=== PATIENT | male | born 1940 | race Caucasian/White ===

== ENCOUNTER 2016-10-02 13:45 | Inpatient (IN) | payer MEDICARE, OTHER ==
--- NOTE | ~2016-10-02 | DS ---
Discharge Summary [facility] [address] [facility] [place]. [address] NAME: DEMAR GRIMM : 40 STATUS : DIS IN PAT#: [id number] AGE: 76 ADM/REG DATE : 10/02/16 MR#: [id number] REPORT SERV DATE: 10/13/16 DICTATED BY: MATT HOLLINGSWORTH DATE: 10/12/16 REPORT STATUS : Draft TRANSCRIBED BY: MODL DATE: 10/12/16 ADMISSION DATE: 10/02/2016 DISCHARGE DATE: 10/12/2016 DISCHARGE DIAGNOSES: 1. End-stage renal disease, due to focal segmental glomerulosclerosis. The patient is now on hemodialysis. 2. Status post arteriovenous fistula placement. 3. Acute on chronic systolic congestive heart failure, now euvolemic. 4. Iron-deficiency anemia, with Coag-negative stools. The patient will follow up as an outpatient as he has never had a colonoscopy. 5. Chronic obstructive pulmonary disease with ongoing tobacco abuse. CONSULTANTS: 1. Cardiology. 2. Nephrology. 3. Vascular Surgery. PROCEDURES: AV fistula placement on 10/09/2016, by Dr. Fu. HOSPITAL COURSE: This is a 76-year-old gentleman who was admitted to the hospital with acute kidney injury as well as acute volume overload. For details, please refer to excellent H and P dictated by Dr. Stephany Prajapati. I assumed care of this patient on 10/06/2016, and by then, the patient was already on hemodialysis per Nephrology. The patient actually had a very stable hospital stay, and he had a kidney biopsy and AV fistula placement. With dialysis, the patient became euvolemic, and the patient is now being discharged home to continue outpatient dialysis. Of note, the patient was found to have iron-deficiency anemia in the setting of smoking and having never had a colonoscopy. The patient was strongly encouraged to follow up with conveyor monitor to have a followup colonoscopy done. Notably, the patient's stools were negative for occult blood. DISPOSITION: Home. DISCHARGE MEDICATIONS: No changes. FOLLOWUP: 1. Please follow up with PCP in the next one to two weeks. 2. Please follow up with Nephrology as instructed. 3. The patient will go to [place] for hemodialysis upon discharge. A total of 40 minutes spent in coordinating this patient's discharge today. FATEMEH/MADYSON Discharge Summary [place] [id number] [address] NAME: DEMAR GRIMM : 40 STATUS : DIS IN PAT#: [id number] AGE: 76 ADM/REG DATE : 10/02/16 MR#: [id number] REPORT SERV DATE: 10/13/16 DICTATED BY: MATT HOLLINGSWORTH DATE: 10/12/16 REPORT STATUS : Draft TRANSCRIBED BY: MODL DATE: 10/12/16 Matt Hollingsworth MD / [id number] CC: Matt Hollingsworth MD
--- NOTE | ~2016-10-02 | OP ---
Record Of Operation [facility] [address] [place]. [address] NAME: DEMAR GRIMM : 40 STATUS : ADM IN PAT#: [id number] AGE: 76 ADM/REG DATE : 10/02/16 MR#: [id number] REPORT SERV DATE: 10/09/16 DICTATED BY: TIM FU DATE: 10/08/16 REPORT STATUS : Draft TRANSCRIBED BY: MODL DATE: 10/08/16 DATE OF PROCEDURE: 10/08/2016 PREOPERATIVE DIAGNOSIS: End-stage renal disease. POSTOPERATIVE DIAGNOSIS: End-stage renal disease. PROCEDURE: Right radiocephalic arteriovenous fistula. SURGEON: Tim Fu M.D. POWER DISTRIBUTOR: Maryam Dennis MD. ANESTHESIA: Block. INDICATIONS: The patient is a 76-year-old gentleman with a history of chronic kidney disease that has now progressed to end-stage renal disease. I placed a PermCath the other day and he has received dialysis to treat his volume overload. He now needs longer term access that he was consented for intervention. DESCRIPTION OF PROCEDURE: After informed consent was obtained, the patient was taken to the operating room and placed in the supine position on the operating table. A block had previously been administered. The patient's right upper extremity was prepped and draped in the usual sterile fashion. I began with an ultrasound examination of the right upper extremity and found that the right radial artery was about 3 mm in diameter. The right cephalic vein was about 3 mm in diameter in the forearm. There was a smaller segment at a branch point in the [id number] forearm. It enlarged shortly thereafter. Thus, I decided to perform a right radiocephalic fistula. Once again, the right upper extremity had previously been prepped and draped in the usual sterile fashion. A block had been previously administered. A longitudinal skin incision was made along the right wrist. The cautery was used to deepen the incision. I dissected out the radial artery as well as the cephalic vein. I ligated and divided the cephalic vein distally after marking it for orientation. I systemically heparinized and controlled the radial artery. I created a longitudinal arteriotomy. I spatulated the end of the cephalic vein and sewed the end of the cephalic vein onto the side of the radial artery. I had to trim off the end of the vein, as the spatulated end of the vein was fairly long. I flushed off air and debris before tying down the sutures. I then released flow through the fistula. There was a good thrill with continuous forward flow by continuous wave Doppler examination. I washed out the wound, achieved hemostasis, and closed the wound in layers. The patient tolerated the procedure well without any intraprocedural complications noted. JACKELIN/MADYSON Tim Gomez Record Of Operation [address] [place]. [address] NAME: DEMAR GRIMM : 40 STATUS : ADM IN [facility]#: [id number] AGE: 76 ADM/REG DATE : 10/02/16 MR#: [id number] REPORT SERV DATE: 10/09/16 DICTATED BY: TIM FU DATE: 10/08/16 REPORT STATUS : Draft TRANSCRIBED BY: MADYSON DATE: 10/08/16 Catracho Fu / [id number] CC: MD Ceferino Telles M.D.
--- NOTE | ~2016-10-02 | CN ---
Consultation Report [facility] [address] [place]. [address] NAME: DEMAR MEEHAN : 40 STATUS : ADM IN [facility]#: [id number] AGE: 76 ADM/REG DATE : 10/02/16 MR#: [id number] REPORT SERV DATE: 10/03/16 DICTATED BY: DATE: REPORT STATUS : Draft TRANSCRIBED BY: MODL DATE: 10/03/16 CONSULT DATE OF CONSULTATION: REASON FOR CONSULTATION: Acute kidney injury. HISTORY OF PRESENT ILLNESS: Mr. Meehan is a 76-year-old white male with a history of CKD stage 4, followed in [place] by Dr. Alonso. He feels like his baseline creatinine is anywhere from 1.8 to 2.6, and he presented to the hospital after being prompted by his primary care physician within the office on , had labs drawn in and then Wednesday, they called stating his chest x-ray had fluid in it and his lab work, his kidney function was worse, therefore that prompted the ER visit. In the ER, his creatinine was 4.45. His physical exam findings were consistent with congestive heart failure. Given that, he is admitted for further evaluation and treatment. He denies any dysuria, hematuria. He states all the swelling started approximately a month ago. He had some respiratory symptoms, been started on prednisone and went through 2 courses, one was by injection and one was by pills and with that, his edema started and continued to worsen. He states he usually does not have edema to his ankles but now has significant at 2 to 3+. He had increasingly more short of breath as well. No chest pain, tightness, or pressure. PAST MEDICAL HISTORY: Includes CKD, coronary artery disease status post bypass, PTCA stent, SC, COPD, hypertension, tobacco abuse, ongoing CVA, BPH, hyperlipidemia, anxiety, psoriasis, inguinal hernia repair, cataract, and vasectomy. SOCIAL HISTORY: He lives with daughter. Continues to smoke. No alcohol or illicit drug use. FAMILY MEDICAL HISTORY: Includes significant history of diabetes, end-stage renal disease, and coronary artery disease. ALLERGIES: NONE. MEDICATIONS: At the time of consultation, albuterol, amlodipine, aspirin, atorvastatin, Bumex, Plavix, cholecalciferol, finasteride, folic acid, heparin, insulin, multivitamin, metoprolol, nicotine, omega-3 fatty acids, and thiamine. REVIEW OF SYSTEMS: 12-point review of systems obtained and negative with the exception of that in HPI. PHYSICAL EXAMINATION: VITAL SIGNS: Temperature 97.6, blood pressure 107/56, pulse of 69, respiratory rate 20, and O2 saturation is 95%. GENERAL: This is a pleasant, cooperative, white male. He is sitting up on the side of the bed, in no acute distress. Answers questions appropriately. Consultation Report [address] [address] NAME: DEMAR MEEHAN : 40 STATUS : ADM IN PAT#: [id number] AGE: 76 ADM/REG DATE : 10/02/16 MR#: [id number] REPORT SERV DATE: 10/03/16 DICTATED BY: DATE: REPORT STATUS : Draft TRANSCRIBED BY: MADYSON DATE: 10/03/16 HEENT: Normocephalic and atraumatic. Conjunctivae clear. Sclerae anicteric. Oral mucosa is moist. NECK: Supple. Thick. No lymphadenopathy and he does have some neck vein distention. RESPIRATIONS: Even and unlabored. He has coarse breath sounds with some faint wheezing noted. HEART: Rate is regular. He does have a 3/6 systolic ejection murmur and actually over mitral and aortic valve. No rub or gallop. ABDOMEN: Soft, nontender. No CVA tenderness. BACK: Within normal limits. EXTREMITIES: With 2 to 3+ pitting edema bilaterally. SKIN: Warm, dry, and intact. No unusual rash or skin lesions. NEUROLOGIC: No focal deficits. Mood and affect pleasant and appropriate. PERTINENT LABS AND X-RAYS: Sodium 147, potassium 5.4, chloride 116, CO2 of 23, BUN 47, creatinine 4.35, and magnesium 1.9. WBC 7.9, H and H 9 and 29, and platelets 193,000. Troponin 0.03. BNP of 865. His echocardiogram reveals moderate pulmonary hypertension with PLEASURE CRAFT SAILOR of 42, EF of 40. Moderate diastolic dysfunction. Moderate aortic stenosis. Moderate mitral valve regurgitation. IMPRESSION: 1. Acute kidney injury on chronic kidney disease stage 4 with baseline 1.8 to 2.6. I suspect he has cardiorenal syndrome. 2. Acute exacerbation of systolic and diastolic heart failure. 3. Proteinuria, known history. No history of biopsy. 4. Coronary artery disease, status post bypass. 5. Chronic obstructive pulmonary disease. 6. Hypertension. 7. Mild hyperkalemia. PLAN: Increase diuretic. Follow labs and I's and O's. Quantify protein excretion. Check SPEP. We will follow along with you. Avoid nephrotoxins. Further orders and recommendations pending clinical course. LÓPEZ/MODL MICHELLE Chavez / [id number] CC: Chalino Menard M.D.
--- NOTE | ~2016-10-02 | CN ---
Consultation Report [address] [place]. [address] NAME: DEMAR GRIMM : 40 STATUS : ADM IN PAT#: [id number] AGE: 76 ADM/REG DATE : 10/02/16 MR#: [id number] REPORT SERV DATE: 10/06/16 DICTATED BY: TMI FU DATE: 10/05/16 REPORT STATUS : Draft TRANSCRIBED BY: MODL DATE: 10/05/16 CONSULT NOTE DATE OF CONSULTATION: 10/05/2016 REASON FOR CONSULTATION: Dialysis access evaluation. BRIEF HISTORY: The patient is a 76-year-old gentleman with a past medical history significant for chronic kidney disease stage 4, as well as coronary artery disease, who has been followed by Dr. Schmidt in [place], [place], for this. He came in the hospital with dyspnea and anasarca. He was found to have worsening renal function. I was consulted for dialysis access evaluation. The patient denies any complaints other than a little bit of shortness of breath. PAST MEDICAL HISTORY: 1. Coronary artery disease, status post myocardial infarction. 2. Hypertension. 3. Chronic kidney disease, stage 4. 4. Hyperlipidemia. 5. COPD. 6. Stroke. 7. BPH. 8. Anxiety. PAST SURGICAL HISTORY: Includes coronary stenting as well as coronary bypass. He has had a right inguinal hernia repair and bilateral cataract surgery. He has also had vasectomy. SOCIAL HISTORY: He is still a smoker. He denies any alcohol or drug use. FAMILY HISTORY: Coronary artery disease and renal failure. MEDICATIONS: Documented on the chart and were reviewed. ALLERGIES: NONE. REVIEW OF SYSTEMS: A complete review of systems was performed and is negative with the exception of the aforementioned findings. PHYSICAL EXAMINATION: VITAL SIGNS: Documented on the chart and were reviewed. GENERAL: The patient is awake, alert, oriented, in no apparent distress. HEAD AND NECK: Benign without any carotid bruits. HEART: Regular rate and rhythm. Consultation Report [address] [place]. [address] NAME: DEMAR GRIMM : 40 STATUS : ADM IN PAT#: [id number] AGE: 76 ADM/REG DATE : 10/02/16 MR#: [id number] REPORT SERV DATE: 10/06/16 DICTATED BY: TIM FU DATE: 10/05/16 REPORT STATUS : Draft TRANSCRIBED BY: MODL DATE: 10/05/16 LUNGS: Clear. ABDOMEN: Soft, nontender, nondistended with a nonaneurysmal aorta. EXTREMITIES: He has a normal complement of upper extremity pulses without any significant edema or ischemic ulcerations. He has palpable femoral pulses. He has nonpalpable pulses distally, but he has a lot of edema in his lower extremities. In fact, it is pitting edema to above his knees. NEUROLOGIC: Grossly nonfocal. MUSCULOSKELETAL: Otherwise benign. LABORATORY DATA: His laboratory investigations are consistent with his renal failure. ASSESSMENT AND PLAN: It looks like this gentleman has history of chronic kidney disease 4, but now has end-stage renal disease. I talked to him about the risks, benefits, and alternatives of catheter-based dialysis, arteriovenous fistulas, and arteriovenous grafts. After careful consideration, he is agreeable to catheter-based dialysis. As he is left-hand dominant, we will also get vein mapping for longer term access, likely on the right side. I have asked him to avoid venipunctures on his right upper extremity. GERONTOLOGICAL NURSE PRACTITIONER/MODL Tim Fu M.D. / [id number] CC: Catracho Reyes M.D.
--- NOTE | ~2016-10-02 | OP ---
Record Of Operation [facility] [address] [place]. [address] NAME: DEMAR GRIMM : 40 STATUS : ADM IN [facility]#: [id number] AGE: 76 ADM/REG DATE : 10/02/16 MR#: [id number] REPORT SERV DATE: 10/06/16 DICTATED BY: TIM FU DATE: 10/05/16 REPORT STATUS : Draft TRANSCRIBED BY: MODDiego DATE: 10/05/16 DATE OF PROCEDURE: 10/05/2016 PREOPERATIVE DIAGNOSIS: End-stage renal disease. POSTOPERATIVE DIAGNOSIS: End-stage renal disease. PROCEDURE: Right IJ PermCath. SURGEON: Tim Fu M.D. STEAM GIGGER: None. ANESTHESIA: MAC with local. INDICATIONS: The patient is a 76-year-old gentleman with a history of chronic kidney disease, who now has progressed to end-stage renal disease. He needs dialysis because of volume overload. I talked to him about the risks, benefits, and alternatives of PermCath placement. He agreed to proceed. DESCRIPTION OF PROCEDURE: After informed consent was obtained, the patient was taken to the operating room and placed in the supine position on the operating table. Monitored anesthesia was administered. His right neck and chest were prepped and draped in the usual sterile fashion. Ultrasound-guided access was obtained of the right internal jugular vein. The ultrasound image was documented on the chart. I passed a wire centrally. I made small skin incisions along the right neck and chest. I tunneled a 19-cm curved bypass catheter from the right chest to the right neck. I inserted a peel-away sheath over the aforementioned wire using fluoroscopic guidance. I subsequently inserted the catheter into the peel-away sheath under fluoroscopy and peeled away the sheath. I confirmed that the catheter was not kinked and that it aspirated and flushed well. The right neck wound was closed. The catheter was sutured in place. It was aspirated and flushed and packed with heparin. A sterile dressing was applied. The patient tolerated the procedure well without any intraprocedural complications noted. PROGRAM ARRANGER/MADYSON Tim Fu M.D. / [id number] CC: Catracho Reyes M.D. Record Of Operation [address] [facility] [place]. [address] NAME: DEMAR GRIMM : 40 STATUS : ADM IN [facility]#: [id number] AGE: 76 ADM/REG DATE : 10/02/16 MR#: [id number] REPORT SERV DATE: 10/06/16 DICTATED BY: TIM FU DATE: 10/05/16 REPORT STATUS : Draft TRANSCRIBED BY: MODL DATE: 10/05/16 José Miguel Schmidt MD
--- NOTE | ~2016-10-02 | CN ---
Consultation Report [facility] [address] [facility] [place]. [address] NAME: ALMA MEEHAN : 40 STATUS : ADM IN [facility]#: [id number] AGE: 76 ADM/REG DATE : 10/02/16 MR#: [id number] REPORT SERV DATE: 10/05/16 DICTATED BY: LOCO MUÑIZ DATE: 10/03/16 REPORT STATUS : Draft TRANSCRIBED BY: MODL DATE: 10/03/16 CARDIOVASCULAR CONSULTATION DATE OF CONSULTATION: 10/03/2016 REFERRING PHYSICIAN: Dr. Prajapati. HISTORY OF PRESENT ILLNESS: Mr. Alma Meehan is a 76-year-old gentleman with past medical history significant for coronary artery disease, congestive heart failure, chronic kidney disease, COPD, hypertension, and hyperlipidemia. He presents to the hospital via his PCP after a one-month history of increasing edema and shortness of breath. REVIEW OF SYSTEMS: The patient denies any chest pain, nausea, or diaphoresis. He does report increasing orthopnea and occasional paroxysmal nocturnal dyspnea. He denies any syncope or presyncope. He denies any gastrointestinal complaints. He does report some urinary hesitancy. PAST MEDICAL HISTORY: As noted above significant for coronary artery disease. The patient is status post bypass in [place], [place] in 1999. He has had subsequent stents. He is followed by Dr. Norman Bacon in [place], [place]. He is also followed by Dr. Schmidt for his chronic renal insufficiency. He reports his baseline creatinine is around 2.5. The patient also with history of COPD. He has history of hypertension, hyperlipidemia, remote CVA. SOCIAL HISTORY: The patient continues to smoke. FAMILY HISTORY: Positive for coronary artery disease. MEDICATIONS: See list. ALLERGIES: THE PATIENT REPORTS NO KNOWN DRUG ALLERGIES. PHYSICAL EXAMINATION: VITAL SIGNS: Blood pressure 118/60, pulse 76, respiratory rate 18. The patient is afebrile. GENERAL: This is a well-developed, well-nourished, 76-year-old gentleman who is alert and oriented x3 in no acute distress. NECK: No jugular venous distention or hepatojugular reflux. CARDIOVASCULAR: Normal rate with regular rhythm. 3/6 holosystolic murmur heard best at the left sternal border. LUNGS: Diminished breath sounds in the bases. There are no wheezes or rales. Excursion is fair. EXTREMITIES: 3 to 4+ pitting edema with chronic venous changes. LABORATORY DATA: Significant for negative troponin x3. Consultation Report [place] [address] [place]. [address] NAME: ALMA MEEHAN : 40 STATUS : ADM IN PAT#: [id number] AGE: 76 ADM/REG DATE : 10/02/16 MR#: [id number] REPORT SERV DATE: 10/05/16 DICTATED BY: LOCO MUÑIZ DATE: 10/03/16 REPORT STATUS : Draft TRANSCRIBED BY: MODL DATE: 10/03/16 BUN and creatinine are elevated at 41 and 4.35. BNP is elevated at 866. EKG showed sinus rhythm with nonspecific ST-T wave abnormalities. There is no evidence of acute injury or infarct. Echocardiogram performed today was reviewed by me which showed moderate global hypokinesis with an ejection fraction of 40%. The patient has essential MR jet of moderate to severe. He has mild to moderate aortic stenosis. EF is suppressed in a global fashion. ASSESSMENT: 1. Heart failure with reduced ejection fraction. The ejection fraction of 40% shows severe overall depression in the face of moderate to severe mitral insufficiency. 2. Coronary artery disease-stable. 3. Acute kidney injury on chronic renal disease. 4. Chronic obstructive pulmonary disease. 5. Hypertension. 6. Hyperlipidemia. 7. Remote cerebrovascular accident. 8. Nicotine dependence. PLAN: 1. Continue current cardiovascular medications including aspirin, Plavix, beta magdalena, Crestor. 2. Will need diuresis per Renal. May end up requiring hemodialysis. 3. No evidence of acute ischemia but will continue to monitor closely. I appreciate your consultation on this complex patient. I will follow him closely with you. /MADYSON Loco Muñiz M.D., [facility] / [id number] CC: Chalino Menard M.D. Norman Bacon M.D.
--- NOTE | ~2016-10-02 | HP ---
History And Physical [place] [id number] [facility] [place]. [address] NAME: DEMAR GRIMM : 40 STATUS : ADM IN [facility]#: [id number] AGE: 76 ADM/REG DATE : 10/02/16 MR#: [id number] REPORT SERV DATE: 10/02/16 DICTATED BY: ANYI CHRISTIANSON DATE: 10/02/16 REPORT STATUS : Draft TRANSCRIBED BY: MODL DATE: 10/02/16 DATE OF ADMISSION: 10/02/2016 CHIEF COMPLAINT: Increasing shortness of breath and total body edema for the last month. The patient is sent by his primary care provider. HISTORY OF PRESENT ILLNESS: This is a very pleasant 76-year-old gentleman. He has an extensive past medical history significant for coronary artery disease. He had CABG x3 in 2007 and PTCA and stent in 1999. He has a history of chronic kidney disease with creatinine around 2.5 to 2.8. He is followed by Dr. Schmidt, Nephrology in [place], [place]. Dr. Loco Bacon is his client insights consultant. He has a history of hypertension, COPD with ongoing tobacco abuse, history of CVA with no deficit, history of BPH, hyperlipidemia, and anxiety disorder. He is presenting today to [facility] with complaints that are going on for about one month with an increasing body edema, progressive shortness of breath, and cough which has been nonproductive. In fact, the bilateral lower extremity edema got progressively worse to the point that he went yesterday to his primary care provider. The patient has been put on some Lasix, but due to the progressiveness of his edema, the patient has been referred to [facility] Emergency Room. It is important to note that the patient has not seen his senior director marketing lately, and he has not had any change in his medication except adding Lasix 20 mg p.o. daily yesterday. He has been evaluated in the emergency room and Hospitalist Service has been asked for admission for further evaluation and treatment. Again, the patient denies any nausea or vomiting. No diarrhea or constipation. He has been denying any increased urinary frequency or urgency. He does not have any hematemesis or melena. No hematochezia. No fever. No other complaints. No sick contacts and no recent hospitalization. PAST MEDICAL HISTORY: Significant for coronary artery disease, status post remote [place], CABG x3, and PTCA and stent, history of hypertension, history of chronic kidney disease, history of hyperlipidemia, history of COPD, history of CVA, history of BPH, anxiety disorder, ongoing tobacco abuse. PAST SURGICAL HISTORY: Includes CABG x3, right inguinal hernia repair, bilateral cataract repair, and vasectomy. SOCIAL HISTORY: He is still a smoker. He smoked more than 60 years between half-a-pack and one-pack a day. No alcohol. No IV drugs. He is retired. FAMILY HISTORY: Significant for coronary artery disease and end-stage renal disease. MEDICATIONS: Listed as his home medication include ProAir, Xanax, Norvasc, aspirin, Tums, vitamin D, Plavix, Proscar, Breo Ellipta, Lasix, Toprol-XL, Ocuvite, multivitamin, Nitrostat, fish oil, potassium tablets, Crestor, and selenium over the counter. REVIEW OF SYSTEMS: A 14-point review of systems has been obtained and pertinent positive has been listed in the history of present illness. Otherwise, negative except those underlying above. History And Physical [address] [address] NAME: DEMAR GRIMM : 40 STATUS : ADM IN [facility]#: [id number] AGE: 76 ADM/REG DATE : 10/02/16 MR#: [id number] REPORT SERV DATE: 10/02/16 DICTATED BY: ANYI CHRISTIANSON DATE: 10/02/16 REPORT STATUS : Draft TRANSCRIBED BY: MADYSON DATE: 10/02/16 PHYSICAL EXAMINATION: VITAL SIGNS: The patient is afebrile. Currently, blood pressure is 141/74, heart rate 91, respiratory rate 20, and saturating 96% in room air. GENERAL: He is a very pleasant, well-developed, well-nourished gentleman, in no acute distress. He is alert and oriented x3. Nonfocal. He follows all his commands appropriately. HEENT: Show pupils equal, round, reactive to light. Extraocular movements intact. No JVD. No lymphadenopathy. No thyromegaly appreciated. CHEST: Shows bilateral air entry. Decreased breath sounds throughout. Few bibasilar crackles. No wheezes or rhonchi appreciated. CARDIOVASCULAR: He has regular rate and rhythm. S1, S2 positive. No S3, no S4. No murmurs, rubs, or gallops appreciated. ABDOMEN: Soft with positive bowel sounds. Nontender. No guarding. No rebound. EXTREMITIES: No clubbing. No cyanosis. +2 pitting edema. NEUROLOGY: The patient is alert and oriented x3. He is nonfocal. He follows all his commands appropriately. LABORATORY DATA: Labs from today include sodium 148, potassium 4.7, chloride 114, CO2 of 27, BUN 49, creatinine 4.45, glucose is 129. Total protein 6.8, albumin 2.5, globulin is 4.3, total bilirubin 0.2. Alkaline phosphatase 110, ALT 25, AST 12. BNP 776.8. White count is 7.2, hemoglobin 9.5, hematocrit 29.8, platelets are 175. His EKG performed in the emergency room has shown the patient has normal sinus rhythm with sinus arrhythmia, possible left atrial enlargement with left axis deviation. There is a chest x-ray, portable, performed in the emergency room. It does show some congestion, mild. No effusion otherwise, no acute cardiopulmonary abnormality that could be identified. ASSESSMENT: This is a very pleasant 76-year-old gentleman with: 1. Acute on chronic kidney disease with volume overload. 2. History of coronary artery disease, status post prior coronary artery bypass graft, status post prior percutaneous transluminal coronary angioplasty and stent. 3. History of hypertension. 4. History of hyperlipidemia. 5. Chronic obstructive pulmonary disease with ongoing tobacco abuse. 6. Hyperlipidemia. 7. Benign prostatic hyperplasia. PLAN: 1. The patient is going to be admitted to Hospitalist Service. Regarding his volume overload with acute on chronic kidney disease, a Ríos catheter has been placed. The patient does not have urinary retention. We are going to give him IV diuretics. Check on renal ultrasound. Check all his studies. Consult Nephrology for further recommendation. We are going to check on 2D echo as well and follow up his labs very closely. 2. History of coronary artery disease, status post CABG, status post stents. We are going to continue his home medication. Check cardiac enzymes. Check on 2D echo and consult Cardiology for further recommendation. History And Physical [address] [address] NAME: DEMAR GRIMM [place] : 40 STATUS : ADM IN [facility]#: [id number] AGE: 76 ADM/REG DATE : 10/02/16 MR#: [id number] REPORT SERV DATE: 10/02/16 DICTATED BY: ANYI CHRISTIANSON DATE: 10/02/16 REPORT STATUS : Draft TRANSCRIBED BY: MADYSON DATE: 10/02/16 3. History of hypertension. Continue his home medications and provide p.r.n. hydralazine as needed. 4. COPD with ongoing tobacco abuse. We will continue nebulizer, Breo Ellipta, nicotine patch, and aggressive tobacco cessation education has been provided to the patient as well. 5. Hyperlipidemia. We will continue his home medications and check fasting lipid profile. 6. BPH. We will continue his home medications. 7. Anemia. We will check all his anemia studies as well as guaiac all his stool. We will provide reasonable pain and nausea control as well as GI and DVT prophylaxis. That has been discussed extensively with the patient. All the questions have been answered in full. Further workup and recommendation pending above. It is worthwhile to note that the patient is going to be follow up by Dr. Ricardo Almanza. CF/MADYSON Anyi Christianson M.D. / [id number] CC: Ricardo Almanza MD
[2016-10-02 13:08] LABS: BASOPHILS 0.4 %; BASOPHILS ABSOLUTE 0.03 10/3/uL (0.0-0.16); EOSINOPHILS 3.6 %; EOSINOPHILS ABSOLUTE 0.26 10/3/uL (0.0-0.53); ER CBC TAT 0 Hrs 05 Mins; IMMATURE GRANULOCYTES 0.4 %; IMMATURE GRANULOCYTES ABSOLUTE 0.03 10/3/uL (0.0-0.11); LYMPHOCYTES 14.1 %; LYMPHOCYTES ABSOLUTE 1.01 10/3/uL (0.67-4.30); MEAN CORPUS HGB CONC 31.9 g/dL (32.0-36.0); MEAN CORPUSCULAR HEMOGLOB 28.6 pg (26.0-34.0); MEAN CORPUSCULAR VOLUME 89.8 fL (80-100); MEAN PLATELET VOLUME 9.1 fL (9.2-13.0); MONOCYTES 7.8 %; MONOCYTES ABSOLUTE 0.56 10/3/uL (0.21-1.20); NEUTROPHILS 73.7 %; NEUTROPHILS ABSOLUTE 5.29 10/3/uL (2.02-8.40); PLATELET COUNT 175 10/3/uL (150-400); RBC DISTRIBUTION WIDTH 16.9 % (12.0-16.0); WHITE BLOOD CELLS 7.2 10/3/uL (4.5-10.5)
[2016-10-02 13:09] LABS: HEMATOCRIT 29.8 % (40.0-51.0); HEMOGLOBIN 9.5 g/dL (13.6-17.8); MANUAL DIFF NO %; RED CELL COUNT 3.32 10/6/uL (4.7-6.1)
[2016-10-02 13:21] LABS: A/G RATIO 0.6 (0.7-1.9); ALBUMIN 2.5 G/DL (3.5-5.0); ALKALINE PHOSPHATASE 110 U/L (45-117); CALCIUM, SERUM 8.3 MG/DL (8.5-10.4); CHLORIDE, SERUM 114 MMOL/L (96-112); GLOBULIN 4.3 G/DL (2.5-4.1); POTASSIUM, SERUM 4.7 MMOL/L (3.5-5.3); SGOT(AST) 12 U/L (5-40); SGPT(ALT) 25 U/L (5-65); SODIUM, SERUM 148 MMOL/L (135-148); TOTAL BILIRUBIN 0.2 MG/DL (0-1.2); TOTAL PROTEIN 6.8 G/DL (6.0-8.5)
[2016-10-02 13:22] LABS: BUN (BLOOD UREA NITROGEN) 49 MG/DL (6-23); CO2 (CARBON DIOXIDE) 29 MMOL/L (24-34); CREATININE 4.45 MG/DL (0.70-1.30); GFR AFRICAN AMERICAN 14 ML/MIN (>=60); GFR NON AFRICAN AMERICAN 12 ML/MIN (>=60); GLUCOSE, SERUM 129 MG/DL (60-99)
[~2016-10-02 13:45] MED LIST: 8 HOUR650 MG PO; ADVAIR250 INH; ASAB PO; BREO ELLIPTA INH; CRESTOR10 PO; FISH-EPA1000 MG PO; MULTIVIT/MIN PO; NITROSTAT0.4 MG SL; NORV5 PO; OCUVITE PO; OTC PSORIASIS CREAM TOP; PLAVIX PO; PROAIR HFA INH; PROSCAR5 PO; SELENIUM 200 MG PO; TOPXL25 PO; TOPXL50 PO; VITAMIN D31000 UNIT PO; X25 PO
[2016-10-02] MEDS ORDERED: BREO ELLIPTA INH (14:32)
[2016-10-02] MEDS ORDERED: PROAIR HFA INH (14:32)
[2016-10-02] MEDS ORDERED: L20 PO (14:33)
[2016-10-02] MEDS ORDERED: K-TABS10 MEQ PO (14:33)
[2016-10-02] MEDS ORDERED: PLAVIX PO (14:33)
[2016-10-02] MEDS ORDERED: CRESTOR10 PO (14:33)
[2016-10-02] MEDS ORDERED: NORV5 PO (14:33)
[2016-10-02] MEDS ORDERED: X25 PO (14:33)
[2016-10-02] MEDS ORDERED: PROSCAR5 PO (14:34)
[2016-10-02] MEDS ORDERED: VITAMIN D2000 UNIT PO (14:34)
[2016-10-02] MEDS ORDERED: OCUVITE PO (14:34)
[2016-10-02] MEDS ORDERED: ASAB PO (14:34)
[2016-10-02] MEDS ORDERED: TUMS E-X750 M2 PO (14:34)
[2016-10-02] MEDS ORDERED: TOPXL25 PO (14:35)
[2016-10-02] MEDS ORDERED: CENTRUM PO (14:35)
[2016-10-02] MEDS ORDERED: FISH OIL1200 MG PO (14:35)
[2016-10-02] MEDS ORDERED: NITROSTAT0.4 MG SL (14:36)
[2016-10-02] MEDS ORDERED: SELENIUM OTC PO (14:36)
[2016-10-02 15:25] LABS: ASCORBIC ACID (UR NOT ORDER) NEG (NEG); BILIRUBIN, URINE NEGATIVE (NEG); ER URINALYSIS TAT 0 Hrs 09 Mins; KETONE, URINE NEGATIVE (NEG); LEUKOCYTE ESTERASE(NOT OR NEG (NEG); NITRITE (URINE) NEG (NEG); WBC (NOT ORDERED) (RFLEX) < 1 (0-5)
[2016-10-02 19:54] LABS: ACETAMINOPHEN LEVEL (TYLENOL) < 2.0 MCG/ML (10.0-20.0); ALCOHOL < 3 MG/DL (0); FERRITIN 62 NG/ML (26-388); FREE T4 0.86 NG/DL (0.76-1.46); IRON BINDING CAPACITY 277 MCG/DL (250-450); IRON, SERUM 32 MCG/DL (35-150); PHOSPHORUS, SERUM 3.5 MG/DL (2.5-4.5); SALICYLATE 4.1 MG/DL (-); TROPONIN I 0.03 NG/ML (<0.05); ULTRASENSITIVE TSH 0.624 MCIU/ML (0.358-3.740)
[2016-10-02 21:02] LABS: INTERNATIONAL NORMAL RATI 1.1 UNITS (-); PARTIAL THROMBO TIME 28.9 SEC (22.5-37.2); PROTIME (NOT ORD) 13.8 SEC (12.0-14.5)
[2016-10-03 05:16] LABS: BASOPHILS 0.4 %; BASOPHILS ABSOLUTE 0.03 10/3/uL (0.0-0.16); EOSINOPHILS 3.7 %; EOSINOPHILS ABSOLUTE 0.29 10/3/uL (0.0-0.53); HEMATOCRIT 29.5 % (40.0-51.0); HEMOGLOBIN 9.3 g/dL (13.6-17.8); IMMATURE GRANULOCYTES 0.4 %; IMMATURE GRANULOCYTES ABSOLUTE 0.03 10/3/uL (0.0-0.11); LYMPHOCYTES 17.2 %; LYMPHOCYTES ABSOLUTE 1.36 10/3/uL (0.67-4.30); MEAN CORPUS HGB CONC 31.5 g/dL (32.0-36.0); MEAN CORPUSCULAR HEMOGLOB 28.5 pg (26.0-34.0); MEAN CORPUSCULAR VOLUME 90.5 fL (80-100); MEAN PLATELET VOLUME 9.7 fL (9.2-13.0); MONOCYTES 8.1 %; MONOCYTES ABSOLUTE 0.64 10/3/uL (0.21-1.20); NEUTROPHILS 70.2 %; NEUTROPHILS ABSOLUTE 5.54 10/3/uL (2.02-8.40); PLATELET COUNT 193 10/3/uL (150-400); RED CELL COUNT 3.26 10/6/uL (4.7-6.1); WHITE BLOOD CELLS 7.9 10/3/uL (4.5-10.5)
[2016-10-03 05:17] LABS: MANUAL DIFF NO %
[2016-10-03 05:35] LABS: A/G RATIO 0.6 (0.7-1.9); ALBUMIN 2.5 G/DL (3.5-5.0); ALKALINE PHOSPHATASE 104 U/L (45-117); BUN (BLOOD UREA NITROGEN) 47 MG/DL (6-23); CHLORIDE, SERUM 116 MMOL/L (96-112); CHOL/HDL RATIO(NOT ORDER) 1.9 (0-5); CHOLESTEROL 107 MG/DL (< 200); CREATININE 4.35 MG/DL (0.70-1.30); GFR AFRICAN AMERICAN 14 ML/MIN (>=60); GFR NON AFRICAN AMERICAN 12 ML/MIN (>=60); GLOBULIN 3.9 G/DL (2.5-4.1); HDL CHOLESTEROL 56 MG/DL (> 39); LDL CHOLESTEROL 34 MG/DL (< 130); NON-HDL CHOLESTEROL 51 MG/DL (< 160); POTASSIUM, SERUM 5.4 MMOL/L (3.5-5.3); SGOT(AST) 9 U/L (5-40); SGPT(ALT) 21 U/L (5-65); SODIUM, SERUM 147 MMOL/L (135-148); TOTAL BILIRUBIN 0.2 MG/DL (0-1.2); TOTAL PROTEIN 6.4 G/DL (6.0-8.5); TRIGLYCERIDE 89 MG/DL (< 150); TROPONIN I 0.03 NG/ML (<0.05)
[2016-10-03 05:40] LABS: CO2 (CARBON DIOXIDE) 23 MMOL/L (24-34); GLUCOSE, SERUM 94 MG/DL (60-99)
[2016-10-03 13:05] LABS: GLYCOHEMOGLOBIN (HbA1c) 5.8 % (4.7-6.1)
[2016-10-03 18:28] LABS: COMPLEMENT C3 129 MG/DL (75-161); COMPLEMENT C4 47.6 MG/DL (16-47)
[2016-10-04 06:56] LABS: BASOPHILS 0.4 %; BASOPHILS ABSOLUTE 0.03 10/3/uL (0.0-0.16); EOSINOPHILS 3.8 %; EOSINOPHILS ABSOLUTE 0.27 10/3/uL (0.0-0.53); HEMATOCRIT 28.8 % (40.0-51.0); HEMOGLOBIN 9.3 g/dL (13.6-17.8); IMMATURE GRANULOCYTES 0.4 %; IMMATURE GRANULOCYTES ABSOLUTE 0.03 10/3/uL (0.0-0.11); MEAN CORPUS HGB CONC 32.3 g/dL (32.0-36.0); MEAN CORPUSCULAR HEMOGLOB 28.7 pg (26.0-34.0); MEAN CORPUSCULAR VOLUME 88.9 fL (80-100); MEAN PLATELET VOLUME 9.5 fL (9.2-13.0); MONOCYTES 9.8 %; MONOCYTES ABSOLUTE 0.69 10/3/uL (0.21-1.20); NEUTROPHILS 68.6 %; NEUTROPHILS ABSOLUTE 4.83 10/3/uL (2.02-8.40); PLATELET COUNT 194 10/3/uL (150-400); RBC DISTRIBUTION WIDTH 16.8 % (12.0-16.0); RED CELL COUNT 3.24 10/6/uL (4.7-6.1); WHITE BLOOD CELLS 7.1 10/3/uL (4.5-10.5)
[2016-10-04 07:00] LABS: ALBUMIN 2.4 G/DL (3.5-5.0); CALCIUM, SERUM 7.8 MG/DL (8.5-10.4); CHLORIDE, SERUM 113 MMOL/L (96-112); CO2 (CARBON DIOXIDE) 21 MMOL/L (24-34); CREATININE 4.55 MG/DL (0.70-1.30); GFR AFRICAN AMERICAN 14 ML/MIN (>=60); GFR NON AFRICAN AMERICAN 12 ML/MIN (>=60); GLUCOSE, SERUM 93 MG/DL (60-99); PHOSPHORUS, SERUM 4.4 MG/DL (2.5-4.5); POTASSIUM, SERUM 4.6 MMOL/L (3.5-5.3); SODIUM, SERUM 145 MMOL/L (135-148)
[2016-10-04 07:01] LABS: BUN (BLOOD UREA NITROGEN) 51 MG/DL (6-23)
[2016-10-04 07:02] LABS: T PROTEIN (ELECT)(NOT OR 5.8 G/DL (6.0-8.5)
[2016-10-04 07:15] LABS: MANUAL DIFF NO %
[2016-10-04 08:01] LABS: PLATELET ESTIMATE ADQ (ADEQUATE); RBC MORPHOLOGY NORM (NORMAL)
[2016-10-04 09:41] LABS: CREATININE, URINE 21.2 MG/DL
[2016-10-04 11:35] LABS: PROSTATIC SPECIFIC AG 0.53 NG/ML (0.0-6.5)
[2016-10-04 11:36] LABS: CEA 10.4 NG/ML
[2016-10-05 04:57] LABS: BASOPHILS 0.6 %; BASOPHILS ABSOLUTE 0.05 10/3/uL (0.0-0.16); EOSINOPHILS ABSOLUTE 0.24 10/3/uL (0.0-0.53); HEMATOCRIT 29.8 % (40.0-51.0); HEMOGLOBIN 9.7 g/dL (13.6-17.8); IMMATURE GRANULOCYTES 0.4 %; IMMATURE GRANULOCYTES ABSOLUTE 0.03 10/3/uL (0.0-0.11); LYMPHOCYTES 13.6 %; LYMPHOCYTES ABSOLUTE 1.09 10/3/uL (0.67-4.30); MANUAL DIFF NO %; MEAN CORPUS HGB CONC 32.6 g/dL (32.0-36.0); MEAN CORPUSCULAR HEMOGLOB 28.7 pg (26.0-34.0); MEAN CORPUSCULAR VOLUME 88.2 fL (80-100); MEAN PLATELET VOLUME 9.8 fL (9.2-13.0); MONOCYTES ABSOLUTE 0.96 10/3/uL (0.21-1.20); NEUTROPHILS 70.4 %; NEUTROPHILS ABSOLUTE 5.64 10/3/uL (2.02-8.40); PLATELET COUNT 224 10/3/uL (150-400); RBC DISTRIBUTION WIDTH 16.8 % (12.0-16.0); RED CELL COUNT 3.38 10/6/uL (4.7-6.1)
[2016-10-05 05:11] LABS: ALBUMIN 2.6 G/DL (3.5-5.0); CALCIUM, SERUM 8.2 MG/DL (8.5-10.4); CHLORIDE, SERUM 107 MMOL/L (96-112); CO2 (CARBON DIOXIDE) 24 MMOL/L (24-34); CREATININE 4.94 MG/DL (0.70-1.30); GFR AFRICAN AMERICAN 12 ML/MIN (>=60); GFR NON AFRICAN AMERICAN 11 ML/MIN (>=60); GLUCOSE, SERUM 101 MG/DL (60-99); PHOSPHORUS, SERUM 4.4 MG/DL (2.5-4.5); SODIUM, SERUM 141 MMOL/L (135-148)
[2016-10-05 05:15] LABS: BUN (BLOOD UREA NITROGEN) 56 MG/DL (6-23)
[2016-10-05 09:49] LABS: A/G 1.07 RATIO (0.9-2.10); ALB RELATIVE % 51.6 % (60.0-89.0); ALBUMIN (ELECTRO) 2.99 GM/DL (3.2-5.5); ALPHA 1 (ELECTRO) 0.26 GM/DL (0.1-0.4); ALPHA 1 RELAT % (NOT ORD) 4.5 % (1.0-4.0); ALPHA 2 (ELECTRO) 1.04 GM/DL (0.5-1.10); ALPHA 2 RELAT % 17.9 % (4.5-26.0); BETA GLOBULIN (SPE) 0.84 GM/DL (0.60-1.30); BETA RELATIVE % 14.4 % (9.0-22.0); GAMMA GLOBULIN (SPE) 0.67 G/DL (0.70-1.60); GAMMA RELAT % 11.6 % (6.0-22.0)
[2016-10-05 11:35] LABS: ANA TITER <1:40 TITER
[2016-10-05 14:05] LABS: HEPATITIS B SURFACE ANTIGEN NON-REACTIVE (NON-REACT)
[2016-10-05 14:20] LABS: HEPATITIS C ANTIBODY NON-REACTIVE (NON-REACT)
[2016-10-05 14:21] LABS: HEPATITIS B CORE AB IGM NON-REACTIVE (NON-REAC)
[2016-10-05 14:25] LABS: HIV COMBO NON-REACTIVE (NON REAC)
[2016-10-05 14:26] LABS: HEP A ANTIBODY IGM NON-REACTIVE (NON-REACT)
[2016-10-06 05:31] LABS: BASOPHILS 0.5 %; BASOPHILS ABSOLUTE 0.04 10/3/uL (0.0-0.16); EOSINOPHILS 2.6 %; EOSINOPHILS ABSOLUTE 0.21 10/3/uL (0.0-0.53); HEMOGLOBIN 9.3 g/dL (13.6-17.8); IMMATURE GRANULOCYTES 0.6 %; IMMATURE GRANULOCYTES ABSOLUTE 0.05 10/3/uL (0.0-0.11); LYMPHOCYTES 14.5 %; LYMPHOCYTES ABSOLUTE 1.16 10/3/uL (0.67-4.30); MEAN CORPUS HGB CONC 32.1 g/dL (32.0-36.0); MEAN CORPUSCULAR HEMOGLOB 28.1 pg (26.0-34.0); MEAN CORPUSCULAR VOLUME 87.6 fL (80-100); MEAN PLATELET VOLUME 9.8 fL (9.2-13.0); MONOCYTES 12.4 %; MONOCYTES ABSOLUTE 0.99 10/3/uL (0.21-1.20); NEUTROPHILS 69.4 %; NEUTROPHILS ABSOLUTE 5.54 10/3/uL (2.02-8.40); PLATELET COUNT 219 10/3/uL (150-400); RBC DISTRIBUTION WIDTH 16.7 % (12.0-16.0); RED CELL COUNT 3.31 10/6/uL (4.7-6.1)
[2016-10-06 05:32] LABS: MANUAL DIFF NO %
[2016-10-06 05:33] LABS: INTERNATIONAL NORMAL RATI 1.2 UNITS (-); PROTIME (NOT ORD) 14.6 SEC (12.0-14.5)
[2016-10-06 05:49] LABS: ALBUMIN 2.5 G/DL (3.5-5.0); ALKALINE PHOSPHATASE 102 U/L (45-117); CALCIUM, SERUM 8.2 MG/DL (8.5-10.4); CHLORIDE, SERUM 104 MMOL/L (96-112); CO2 (CARBON DIOXIDE) 26 MMOL/L (24-34); CREATININE 5.24 MG/DL (0.70-1.30); GFR AFRICAN AMERICAN 11 ML/MIN (>=60); GFR NON AFRICAN AMERICAN 10 ML/MIN (>=60); GLUCOSE, SERUM 86 MG/DL (60-99); PHOSPHORUS, SERUM 4.6 MG/DL (2.5-4.5); POTASSIUM, SERUM 4.6 MMOL/L (3.5-5.3); SGOT(AST) 13 U/L (5-40); SGPT(ALT) 14 U/L (5-65); SODIUM, SERUM 139 MMOL/L (135-148); TOTAL BILIRUBIN 0.2 MG/DL (0-1.2); TOTAL PROTEIN 6.5 G/DL (6.0-8.5)
[2016-10-06 05:51] LABS: BUN (BLOOD UREA NITROGEN) 62 MG/DL (6-23); DIRECT BILIRUBIN < 0.1 MG/DL (0.0-0.4); INDIRECT BILIRUBIN(NOT ORDER) 0.1 MG/DL (0.1-0.9)
[2016-10-07 04:59] LABS: BASOPHILS 0.7 %; BASOPHILS ABSOLUTE 0.06 10/3/uL (0.0-0.16); EOSINOPHILS 2.8 %; EOSINOPHILS ABSOLUTE 0.23 10/3/uL (0.0-0.53); HEMATOCRIT 28.2 % (40.0-51.0); HEMOGLOBIN 9.2 g/dL (13.6-17.8); IMMATURE GRANULOCYTES 1.6 %; IMMATURE GRANULOCYTES ABSOLUTE 0.13 10/3/uL (0.0-0.11); LYMPHOCYTES 13.3 %; LYMPHOCYTES ABSOLUTE 1.11 10/3/uL (0.67-4.30); MEAN CORPUS HGB CONC 32.6 g/dL (32.0-36.0); MEAN CORPUSCULAR HEMOGLOB 28.6 pg (26.0-34.0); MEAN CORPUSCULAR VOLUME 87.6 fL (80-100); MEAN PLATELET VOLUME 10.2 fL (9.2-13.0); MONOCYTES 15.4 %; MONOCYTES ABSOLUTE 1.28 10/3/uL (0.21-1.20); NEUTROPHILS 66.2 %; NEUTROPHILS ABSOLUTE 5.51 10/3/uL (2.02-8.40); PLATELET COUNT 206 10/3/uL (150-400); RBC DISTRIBUTION WIDTH 16.6 % (12.0-16.0); RED CELL COUNT 3.22 10/6/uL (4.7-6.1); WHITE BLOOD CELLS 8.3 10/3/uL (4.5-10.5)
[2016-10-07 05:04] LABS: MANUAL DIFF NO %
[2016-10-07 05:13] LABS: ALBUMIN 2.4 G/DL (3.5-5.0); CALCIUM, SERUM 8.4 MG/DL (8.5-10.4); CHLORIDE, SERUM 103 MMOL/L (96-112); CO2 (CARBON DIOXIDE) 25 MMOL/L (24-34); PHOSPHORUS, SERUM 4.1 MG/DL (2.5-4.5); POTASSIUM, SERUM 4.6 MMOL/L (3.5-5.3); SODIUM, SERUM 140 MMOL/L (135-148)
[2016-10-07 05:20] LABS: BUN (BLOOD UREA NITROGEN) 48 MG/DL (6-23); CREATININE 4.67 MG/DL (0.70-1.30); GFR AFRICAN AMERICAN 13 ML/MIN (>=60); GFR NON AFRICAN AMERICAN 11 ML/MIN (>=60); GLUCOSE, SERUM 106 MG/DL (60-99)
[2016-10-08 06:26] LABS: BASOPHILS 0.7 %; BASOPHILS ABSOLUTE 0.06 10/3/uL (0.0-0.16); EOSINOPHILS 3.2 %; EOSINOPHILS ABSOLUTE 0.28 10/3/uL (0.0-0.53); HEMATOCRIT 29.9 % (40.0-51.0); HEMOGLOBIN 9.6 g/dL (13.6-17.8); IMMATURE GRANULOCYTES 1.5 %; IMMATURE GRANULOCYTES ABSOLUTE 0.13 10/3/uL (0.0-0.11); LYMPHOCYTES 13.7 %; LYMPHOCYTES ABSOLUTE 1.19 10/3/uL (0.67-4.30); MEAN CORPUS HGB CONC 32.1 g/dL (32.0-36.0); MEAN CORPUSCULAR HEMOGLOB 28.5 pg (26.0-34.0); MEAN CORPUSCULAR VOLUME 88.7 fL (80-100); MEAN PLATELET VOLUME 10.1 fL (9.2-13.0); MONOCYTES 13.8 %; NEUTROPHILS 67.1 %; NEUTROPHILS ABSOLUTE 5.85 10/3/uL (2.02-8.40); PLATELET COUNT 212 10/3/uL (150-400); RBC DISTRIBUTION WIDTH 16.8 % (12.0-16.0); RED CELL COUNT 3.37 10/6/uL (4.7-6.1); WHITE BLOOD CELLS 8.7 10/3/uL (4.5-10.5)
[2016-10-08 06:28] LABS: MANUAL DIFF NO %
[2016-10-08 06:36] LABS: ALBUMIN 2.4 G/DL (3.5-5.0); CALCIUM, SERUM 8.5 MG/DL (8.5-10.4); CHLORIDE, SERUM 103 MMOL/L (96-112); CO2 (CARBON DIOXIDE) 25 MMOL/L (24-34); GFR AFRICAN AMERICAN 17 ML/MIN (>=60); GFR NON AFRICAN AMERICAN 15 ML/MIN (>=60); GLUCOSE, SERUM 105 MG/DL (60-99); PHOSPHORUS, SERUM 3.7 MG/DL (2.5-4.5); POTASSIUM, SERUM 4.4 MMOL/L (3.5-5.3); SODIUM, SERUM 140 MMOL/L (135-148)
[2016-10-08 06:38] LABS: BUN (BLOOD UREA NITROGEN) 27 MG/DL (6-23); CREATININE 3.76 MG/DL (0.70-1.30)
[2016-10-09 08:58] LABS: BASOPHILS 0.4 %; BASOPHILS ABSOLUTE 0.04 10/3/uL (0.0-0.16); EOSINOPHILS 2.6 %; EOSINOPHILS ABSOLUTE 0.23 10/3/uL (0.0-0.53); HEMATOCRIT 28.3 % (40.0-51.0); HEMOGLOBIN 9.1 g/dL (13.6-17.8); IMMATURE GRANULOCYTES ABSOLUTE 0.09 10/3/uL (0.0-0.11); LYMPHOCYTES 12.9 %; LYMPHOCYTES ABSOLUTE 1.16 10/3/uL (0.67-4.30); MANUAL DIFF NO %; MEAN CORPUS HGB CONC 32.2 g/dL (32.0-36.0); MEAN CORPUSCULAR VOLUME 90.1 fL (80-100); MEAN PLATELET VOLUME 9.9 fL (9.2-13.0); MONOCYTES 11.1 %; NEUTROPHILS ABSOLUTE 6.46 10/3/uL (2.02-8.40); PLATELET COUNT 184 10/3/uL (150-400); RBC DISTRIBUTION WIDTH 16.8 % (12.0-16.0); RED CELL COUNT 3.14 10/6/uL (4.7-6.1)
[2016-10-09 09:06] LABS: ALBUMIN 2.3 G/DL (3.5-5.0); BUN (BLOOD UREA NITROGEN) 34 MG/DL (6-23); CALCIUM, SERUM 8.5 MG/DL (8.5-10.4); CHLORIDE, SERUM 106 MMOL/L (96-112); CO2 (CARBON DIOXIDE) 28 MMOL/L (24-34); CREATININE 4.54 MG/DL (0.70-1.30); GFR AFRICAN AMERICAN 14 ML/MIN (>=60); GFR NON AFRICAN AMERICAN 12 ML/MIN (>=60); GLUCOSE, SERUM 80 MG/DL (60-99); PHOSPHORUS, SERUM 4.5 MG/DL (2.5-4.5); POTASSIUM, SERUM 4.4 MMOL/L (3.5-5.3); SODIUM, SERUM 141 MMOL/L (135-148)
[2016-10-10 04:46] LABS: BASOPHILS 0.6 %; BASOPHILS ABSOLUTE 0.06 10/3/uL (0.0-0.16); EOSINOPHILS 3.3 %; EOSINOPHILS ABSOLUTE 0.34 10/3/uL (0.0-0.53); IMMATURE GRANULOCYTES 1.6 %; IMMATURE GRANULOCYTES ABSOLUTE 0.16 10/3/uL (0.0-0.11); LYMPHOCYTES 13.3 %; LYMPHOCYTES ABSOLUTE 1.35 10/3/uL (0.67-4.30); MEAN CORPUS HGB CONC 31.3 g/dL (32.0-36.0); MEAN CORPUSCULAR HEMOGLOB 28.7 pg (26.0-34.0); MEAN CORPUSCULAR VOLUME 91.7 fL (80-100); MEAN PLATELET VOLUME 10.2 fL (9.2-13.0); MONOCYTES 11.6 %; MONOCYTES ABSOLUTE 1.18 10/3/uL (0.21-1.20); NEUTROPHILS 69.6 %; NEUTROPHILS ABSOLUTE 7.06 10/3/uL (2.02-8.40); PLATELET COUNT 189 10/3/uL (150-400); RBC DISTRIBUTION WIDTH 16.6 % (12.0-16.0); RED CELL COUNT 3.48 10/6/uL (4.7-6.1); WHITE BLOOD CELLS 10.2 10/3/uL (4.5-10.5)
[2016-10-10 04:53] LABS: HEMATOCRIT 31.9 % (40.0-51.0); MANUAL DIFF NO %
[2016-10-10 04:59] LABS: ALBUMIN 2.6 G/DL (3.5-5.0); BUN (BLOOD UREA NITROGEN) 26 MG/DL (6-23); CALCIUM, SERUM 8.5 MG/DL (8.5-10.4); CHLORIDE, SERUM 106 MMOL/L (96-112); CO2 (CARBON DIOXIDE) 26 MMOL/L (24-34); CREATININE 4.15 MG/DL (0.70-1.30); GFR AFRICAN AMERICAN 15 ML/MIN (>=60); GFR NON AFRICAN AMERICAN 13 ML/MIN (>=60); GLUCOSE, SERUM 105 MG/DL (60-99); PHOSPHORUS, SERUM 3.6 MG/DL (2.5-4.5); POTASSIUM, SERUM 4.5 MMOL/L (3.5-5.3); SODIUM, SERUM 142 MMOL/L (135-148)
[2016-10-11 08:14] LABS: ALBUMIN 2.7 G/DL (3.5-5.0); CALCIUM, SERUM 8.4 MG/DL (8.5-10.4); CHLORIDE, SERUM 106 MMOL/L (96-112); CO2 (CARBON DIOXIDE) 24 MMOL/L (24-34); GFR AFRICAN AMERICAN 11 ML/MIN (>=60); GFR NON AFRICAN AMERICAN 10 ML/MIN (>=60); GLUCOSE, SERUM 93 MG/DL (60-99); PHOSPHORUS, SERUM 3.9 MG/DL (2.5-4.5); POTASSIUM, SERUM 4.6 MMOL/L (3.5-5.3); SODIUM, SERUM 140 MMOL/L (135-148)
[2016-10-11 08:15] LABS: BUN (BLOOD UREA NITROGEN) 39 MG/DL (6-23); CREATININE 5.28 MG/DL (0.70-1.30)
[2016-10-12 08:46] LABS: BASOPHILS 0.6 %; BASOPHILS ABSOLUTE 0.06 10/3/uL (0.0-0.16); EOSINOPHILS 3.5 %; EOSINOPHILS ABSOLUTE 0.35 10/3/uL (0.0-0.53); HEMATOCRIT 28.6 % (40.0-51.0); HEMOGLOBIN 9.1 g/dL (13.6-17.8); IMMATURE GRANULOCYTES 1.7 %; IMMATURE GRANULOCYTES ABSOLUTE 0.17 10/3/uL (0.0-0.11); LYMPHOCYTES 12.5 %; LYMPHOCYTES ABSOLUTE 1.26 10/3/uL (0.67-4.30); MANUAL DIFF NO %; MEAN CORPUS HGB CONC 31.8 g/dL (32.0-36.0); MEAN CORPUSCULAR HEMOGLOB 28.7 pg (26.0-34.0); MEAN CORPUSCULAR VOLUME 90.2 fL (80-100); MEAN PLATELET VOLUME 10.3 fL (9.2-13.0); MONOCYTES 9.4 %; MONOCYTES ABSOLUTE 0.95 10/3/uL (0.21-1.20); NEUTROPHILS 72.3 %; NEUTROPHILS ABSOLUTE 7.29 10/3/uL (2.02-8.40); PLATELET COUNT 165 10/3/uL (150-400); RBC DISTRIBUTION WIDTH 16.2 % (12.0-16.0); RED CELL COUNT 3.17 10/6/uL (4.7-6.1); WHITE BLOOD CELLS 10.1 10/3/uL (4.5-10.5)
[2016-10-12 08:51] LABS: ALBUMIN 2.7 G/DL (3.5-5.0); CALCIUM, SERUM 8.3 MG/DL (8.5-10.4); CHLORIDE, SERUM 105 MMOL/L (96-112); CO2 (CARBON DIOXIDE) 24 MMOL/L (24-34); GFR AFRICAN AMERICAN 10 ML/MIN (>=60); GFR NON AFRICAN AMERICAN 8 ML/MIN (>=60); GLUCOSE, SERUM 86 MG/DL (60-99); PHOSPHORUS, SERUM 4.4 MG/DL (2.5-4.5); POTASSIUM, SERUM 4.9 MMOL/L (3.5-5.3); SODIUM, SERUM 137 MMOL/L (135-148)
[2016-10-12 08:52] LABS: BUN (BLOOD UREA NITROGEN) 56 MG/DL (6-23); CREATININE 5.92 MG/DL (0.70-1.30)
[2016-10-12] MEDS ORDERED: FISH OIL1200 MG PO (12:54)
== END 2016-10-12 13:51 | disposition home or self-care (01) | DRG 264 ==
LOC: ER 13:45 → 6NO 15:52
PROVIDERS: Emergency Medicine; Hospitalist; Internal Medicine; Internal Medicine Nephrology; Nurse Practitioner; Registered Nurse; Surgery
PROC: 05HM33Z Insertion of Infusion Device into Right Internal Jugular Vein, Percutaneous Approach (ICD-10-PCS; 2016-10-05)
PROC: B5131ZA Fluoroscopy of Right Jugular Veins using Low Osmolar Contrast, Guidance (ICD-10-PCS; 2016-10-05)
PROC: 5A1D60Z (ICD-10-PCS; 2016-10-08)
PROC: 0TB03ZX Excision of Right Kidney, Percutaneous Approach, Diagnostic (ICD-10-PCS; 2016-10-08)
PROC: 031B0ZF Bypass Right Radial Artery to Lower Arm Vein, Open Approach (ICD-10-PCS; principal; 2016-10-08 14:45)
DX: I13.2 Hypertensive heart and chronic kidney disease with heart failure and with stage 5 chronic kidney disease, or end stage renal disease (principal); N17.9 Acute kidney failure, unspecified; J44.9 Chronic obstructive pulmonary disease, unspecified; E11.22 Type 2 diabetes mellitus with diabetic chronic kidney disease; F17.210 Nicotine dependence, cigarettes, uncomplicated; D50.9 Iron deficiency anemia, unspecified; E78.5 Hyperlipidemia, unspecified; I08.0 Rheumatic disorders of both mitral and aortic valves; N18.6 End stage renal disease; I50.23 Acute on chronic systolic (congestive) heart failure; N40.0 Benign prostatic hyperplasia without lower urinary tract symptoms; N18.9 Chronic kidney disease, unspecified; Z86.73 Personal history of transient ischemic attack (TIA), and cerebral infarction without residual deficits; I25.10 Atherosclerotic heart disease of native coronary artery without angina pectoris; N40.1 Benign prostatic hyperplasia with lower urinary tract symptoms; R39.11 Hesitancy of micturition; Z95.5 Presence of coronary angioplasty implant and graft; I25.2 Old myocardial infarction; Z95.1 Presence of aortocoronary bypass graft; F41.9 Anxiety disorder, unspecified
CPT/HCPCS: 36415; 36558; 50200; 71010; 76775; 77001; 77012; 80053; 80061; 80069; 80074; 80076; 80307; 81001; 82140; 82272; 82378; 82570; 82607; 82728; 82746; 82962; 83036; 83540; 83550; 83615; 83735; 83880; 84100; 84153; 84155; 84156; 84165; 84439; 84443; 84484; 85025; 85610; 85730; 86039; 86160; 86850; 86900; 86901; 86920; 87389; 88305; 88313; 88346; 88348; 88350; 93005; 94640; 99291; A9270-GY; C1887; C8929; G0257; G0365; J0690; J1200; J2150; J2250; J2795; J2916; J3010; J3475; P9047; Q9957